=== PATIENT | female | born 1970 | race Caucasian/White ===

== ENCOUNTER 2016-06-18 00:02 | Emergency (ER) | payer MEDICAID ==
[~2016-06-18] VITALS: Ht 175.3 cm; Wt 104.3 kg
[2016-06-18 00:17] VITALS: BP 119/62
== END 2016-06-18 03:25 | disposition left against medical advice (07) ==
LOC: ER 00:06
DX: S81.852A Open bite, left lower leg, initial encounter (principal); Z53.21 Procedure and treatment not carried out due to patient leaving prior to being seen by health care provider; W57.XXXA Bitten or stung by nonvenomous insect and other nonvenomous arthropods, initial encounter; Y93.89 Activity, other specified; Y99.8 Other external cause status; Y92.89 Other specified places as the place of occurrence of the external cause